=== PATIENT | female | born 1975 | race Caucasian/White ===

== ENCOUNTER 2017-06-26 09:43 | Emergency (ER) | payer BC, OTHER ==
[2017-06-26 09:53] VITALS: BP 149/104
[2017-06-26] MEDS ORDERED: Aspirin Low Dose CHEW TAB* 81 MG PO ONE (10:04)
[2017-06-26] MEDS ORDERED: Nitroglycerin TAB 0.4 MG* 0.4 MG TAB SL ONE (10:04)
--- NOTE | 2017-06-26 10:08 | UC ---
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 WALKED ABOUT 6 MINUTES TO HER OFFICE AFTER PARKING CAR AND SX WORSENED - FELT LIKE SHE MIGHT PASS OUT. PT HAS NAUSEA, EMERSON AND DIZZINESS WELL. NO SOB. NO PERSONAL OR FAMILY H/O CARDIAC DISEASE. NO PREVIOUS SIMILAR SX. - History of Current Complaint Chief Complaint: UCChestPain Stated Complaint: DIZZINESS, SOB,ARM PAIN Time Seen by Provider: 06/26/17 09:44 Hx Obtained From: Patient, Family/Van Loader - Hx Last Menstrual Period: 2 weeks ago Onset/Duration: Sudden Onset, Lasting Hours, Still Present Timing: Constant Initial Severity: Moderate Current Severity: Moderate Pain Intensity: 7 Chest Pain Location: Left Anterior Character: Tightness, Heaviness, Sharp/Stabbing Aggravating Factor(s): Exertion Alleviating Factor(s): Nothing Associated Signs & Symptoms: Positive: Chest Pain, Dizziness, Nausea/Vomiting. Negative: Recent Stress, SOB, Diaphoresis, Palpitations - Allergy/Home Medications Allergies/Adverse Reactions: Allergies Allergy/AdvReac Type Severity Reaction Status Date / Time Peanut Butter Flavor * Allergy Hives Verified 06/26/17 09:53 [Peanut Butter Flavor] Home Medications: Home Medications NK [No Home Medications Reported] 06/26/17 [History Confirmed 06/26/17] PMH/Surg Hx/FS Hx/Imm Hx Psychological History: Anxiety, Depression - Surgical History Surgical History: Yes Surgery Procedure, Year, and Place: 2005 - tubal,. 2016- Hysterectomy - Family History Known Family History: Negative: Cardiac Disease, Hypertension, Diabetes - Social History Alcohol Use: Weekly Alcohol Amount: Weekends Substance Use Type: None Substance Use Comment - Amount & Last Used: "I binge drink up to 12 beers at a time. About 2 times a week." Smoking Status (MU): Former Smoker Type: Cigarettes Length of Time of Smoking/Using Tobacco: socially - Immunization History Most Recent Influenza Vaccination: NOT UTD Most Recent Tetanus Shot: unknown Most Recent Pneumonia Vaccination: never Review of Systems Constitutional: Negative Respiratory: Negative Cardiovascular: Chest Pain Gastrointestinal: Nausea Genitourinary: Negative Neurological: Headache All Other Systems Reviewed And Are Negative: Yes Physical Exam Triage Information Reviewed: Yes Appearance: Well-Appearing, No Pain Distress, Well-Nourished Vital Signs: Initial Vital Signs Temp 99.0 F 01/02/18 09:47 Pulse 76 06/26/17 09:47 Resp 18 06/26/17 09:47 BP 149/104 06/26/17 09:47 Pulse Ox 100 06/26/17 09:47 Vital Signs Reviewed: Yes Eyes: Positive: Conjunctiva Clear ENT: Positive: Hearing grossly normal Neck: Positive: Supple Respiratory Exam: Normal Cardiovascular Exam: Normal Abdomen Description: Positive: Soft Musculoskeletal: Positive: No Edema Neurological: Positive: Alert Psychological: Positive: Normal Response To Family, Age Appropriate Behavior Skin: Negative: rashes Diagnostics - EKG Cardiac Rate: NL Cardiac Rhythm: Sinus: Normal - 63BPM Ectopy: None ST Segment: Normal - Assessment/Plan Course Of Treatment: ASA 81MG X4 GIVEN. 0.4 NTG SL GIVEN. PIV INSERTED WITH NS RUNNING. TO [facility] ED BY AMBULANCE. - Clinical Impression Provider Diagnoses: CHEST PAIN - Physician Notifications Discussed Patient Care With: Natasha Hernandez - TO [facility] ED BY AMBULANCE Time Discussed With Above Provider: 10:10 Instructed by Provider To: MD Will See In ED Discharge - Discharge Plan Condition: Stable Disposition: TRANS HIGHER LVL OF CARE FAC Referrals: Jose Cho MD [Primary Care Provider] -
[2017-06-26] MEDS ORDERED: NS 0.9% 1000 ML* 1,000 ML IV SCH (10:15)
== END 2017-06-26 10:22 | disposition short-term general hospital (02) ==
LOC: UCEAST 09:43
DX: R07.89 Other chest pain (principal); M25.511 Pain in right shoulder; M25.512 Pain in left shoulder; R11.10 Vomiting, unspecified; R51 Headache; R42 Dizziness and giddiness; R06.02 Shortness of breath; M79.603 Pain in arm, unspecified; Z91.010 Allergy to peanuts; Z87.891 Personal history of nicotine dependence
CPT/HCPCS: 93005; 96360; 99213; A9270-GY; G0463

== ENCOUNTER 2017-06-26 10:45 | Observation (INO) | payer BC, OTHER ==
[2017-06-26 11:29] LABS: ABS Basophils 0.1 10^3/ul (0-0.2); ABS Eosinophils 0.3 10^3/ul (0-0.6); ABS Lymphocytes 1.7 10^3/ul (1.0-4.8); ABS Monocytes 0.5 10^3/ul (0-0.8); ABS Nucleated RBC 0 10^3/ul; Eosinophil % 3.4 % (0-6); Hematocrit 37 % (35-47); Hemoglobin 12.6 g/dl (12.0-16.0); Lymphocyte % 20.1 % (25-47); Mean Corpuscular HGB Conc 34 g/dl (31-36); Mean Corpuscular Hemoglobin 33 pg (27-31); Mean Corpuscular Volume 97 fL (80-97); Mean Platelet Volume 8 um3 (7.4-10.4); Nucleated Red Blood Cells % 0; Platelet Count 329 10^3/ul (150-450); Red Blood Count 3.82 10^6/ul (4.0-5.4); Red Cell Distribution Width 13 % (10.5-15); White Blood Count 8.5 10^3/ul (3.5-10.8)
[2017-06-26 11:50] LABS: EGFR Non-African American 70.7 (>60)
--- NOTE | 2017-06-26 12:36 | RAD ---
INDICATION: Chest pain. COMPARISON: Comparison is made with a prior study from August 04, 2014. TECHNIQUE: A portable view of the chest was obtained. FINDINGS: Cardiac and mediastinal contours appear to be within normal limits. The lungs are underinflated and clear. No pleural effusion is seen. There is a moderate dorsal lumbar scoliosis convex toward the right in the dorsal region and toward the left in the lumbar region. IMPRESSION: NO EVIDENCE FOR ACUTE DISEASE.
[2017-06-26] MEDS ORDERED: Ondansetron ODT TAB* 4 MG PO ONE (13:24)
[2017-06-26] MEDS ORDERED: Acetaminophen TAB* 325 MG PO ONE (13:24)
[2017-06-26] MEDS ORDERED: Al Hydrox/Mg Hydrox/Simet LIQ* 30 ML UDC PO PRN (16:21)
[2017-06-26] MEDS ORDERED: Morphine INJ* 2 MG/ML 1 ML SYRINGE (TWO MG - NEW SYRINGE VERSION) IV PRN (16:21)
--- NOTE | 2017-06-26 19:48 | HP ---
CC: Dr. Cho * HISTORY AND PHYSICAL: ADDENDUM: DATE OF ADMISSION: 06/26/17 DIAGNOSTIC STUDIES/LAB DATA: White blood cell count of 8.5, hemoglobin 12.6, hematocrit of 37, and platelets of 329,000. D-dimer was below 200. Sodium was 136, potassium 3.9, chloride 104, carbon dioxide 27, BUN 11, creatinine 0.87. Initial troponin of 0.03, second troponin was 0.10. Due to the second troponin being just done 3 hours later and is significantly more elevated, we will repeat the test on the same blood sample. The patient's TSH was noted to be 0.94. Her liver function tests were unremarkable. The patient's EKG showed normal sinus rhythm with a heart rate of 65 beats per minute with no significant ST changes. The patient's portable chest x-ray was read by the radiologist as "no evidence for acute disease." ASSESSMENT AND PLAN: Shandra Barbour is a 42-year-old female with history of obesity, depression, and status post hysterectomy, who presents as someone with specific complaints of substernal chest pain associated with nausea and vomiting. The patient's second troponin is 0.1, but she has no EKG changes and the symptoms appear to be mostly GI related. The patient currently is chest pain free. Her second troponin is going to be reconfirmed. The patient is going to be placed on overnight observation and if her troponins do not rise anymore, she is going to undergo a cardiac stress test in the morning. Her exercise tolerance is wonderful as she does her CrossFit on almost a daily basis. For DVT prophylaxis, the patient is going to be placed on heparin subcutaneously. The patient's code status is full and her surrogate is her . TIME SPENT: Approximately 62 minutes was spent on admission of this patient, more than half of that time was spent [id number] with the patient doing the interview, physical exam. [id number]/[facility] #: [id number] [facility] HOSPITALDwayne
--- NOTE | 2017-06-26 20:06 | HP ---
CONTINUATION ADDENDUM NOW INCLUDED ON THIS REPORT CC: Dr. Cho * HISTORY AND PHYSICAL: DATE OF ADMISSION: 06/26/17 PRIMARY CARE PROVIDER: Dr. Cho. CHIEF COMPLAINT: Chest pain. HISTORY OF PRESENT ILLNESS: Shandra Barbour is a 42-year-old female with no history of current or ongoing illnesses who presented to the hospital complaining of chest pain. The patient stated that when she was driving to work and was approximately half way into her [address] to [place], she developed bilateral shoulder pain and elbow pain. Subsequently, she developed substernal chest pain with nausea and dizziness. She describes the dizziness as when she tries to get up too rapidly or move her head too swiftly, she she feels like she will be on a ship. She stated that she went to [facility] for it and she received Zofran. Right now, her nausea and the chest pain resolved, but then she stated also that it "comes back in waves." She received aspirin at [facility]. From [facility], she was transferred to ER for further evaluation. Her initial troponin was 0.03, but the second troponin was 0.1. The patient currently is chest pain free. The patient stated that she exercises [employer], which is an exercise group 5- 6 days a week for approximately an hour. At that point, she does heavy weightlifting and aerobic exercises. She has had no problems with exercise tolerance doing that. PAST MEDICAL HISTORY: 1. History of depression. 2. Status post hysterectomy. MEDICATIONS: None. ALLERGIES: No known drug allergies. FAMILY HISTORY: Positive for healthy parents and healthy siblings with no history of heart disease. SOCIAL HISTORY: The patient denies any current tobacco use. She has a history of smoking for 20 years approximately several cigarettes to half a pack a day and she quit over 3 years ago. She drinks alcohol occasionally. She denies any drug use. She is and her surrogate is her . 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 REVIEW OF SYSTEMS: Please see history of present illness. All the remaining 12 systems reviewed with the patient and they were otherwise negative. PHYSICAL EXAMINATION GENERAL APPEARANCE: The patient is a very pleasant 42-year-old female with a BMI of 32. The patient is in no acute distress. Alert, awake, and oriented x3. VITAL SIGNS: Blood pressure of 114/75, heart rate of 84 and regular, respiratory rate of 22, oxygen saturation 97% on room air, and temperature 99.1. HEENT: Head atraumatic and normocephalic. Eyes; pupils are equal, round, and reactive to light and accommodation. Oropharynx clear. Mucosa moist. NECK: Supple. No JVD, no bruits bilaterally. RESPIRATORY: Clear to auscultation bilaterally. CARDIOVASCULAR: Regular rate and rhythm. No murmur. ABDOMEN: Soft and nontender. Bowel sounds are present in all 4 quadrants. EXTREMITIES: There is no edema. Pulses are +2 bilaterally. No clubbing or cyanosis. NEURO EVALUATION: Cranial nerves II through XII are grossly intact. Motor strength is 5/5 bilaterally. SKIN: On evaluation of the skin, no ecchymotic areas or rashes noted. PSYCHIATRIC EVALUATION: On psychiatric evaluation, oriented x3 with no evidence of anxiety or depression. CONTINUATION ADDENDUM: DIAGNOSTIC STUDIES/LAB DATA: White blood cell count of 8.5, hemoglobin 12.6, hematocrit of 37, and platelets of 329,000. D-dimer was below 200. Sodium was 136, potassium 3.9, chloride 104, carbon dioxide 27, BUN 11, creatinine 0.87. Initial troponin of 0.03, second troponin was 0.10. Due to the second troponin being just done 3 hours later and is significantly more elevated, we will repeat the test on the same blood sample. The patient's TSH was noted to be 0.94. Her liver function tests were unremarkable. The patient's EKG showed normal sinus rhythm with a heart rate of 65 beats per minute with no significant ST changes. The patient's portable chest x-ray was read by the radiologist as "no evidence for acute disease." ASSESSMENT AND PLAN: Shandra Barbour is a 42-year-old female with history of obesity, depression, and status post hysterectomy, who presents as someone with specific complaints of substernal chest pain associated with nausea and vomiting. The patient's second troponin is 0.1, but she has no EKG changes and the symptoms appear to be mostly GI related. The patient currently is chest pain free. Her second troponin is going to be reconfirmed. The patient is going to be placed on overnight observation and if her troponins do not rise anymore, she is going to undergo a cardiac stress test in the morning. Her exercise tolerance is wonderful as she does her CrossFit on almost a daily basis. For DVT prophylaxis, the patient is going to be placed on heparin subcutaneously. The patient's code status is full and her surrogate is her . TIME SPENT: Approximately 62 minutes was spent on admission of this patient, more than half of that time was spent [id number] with the patient doing the interview, physical exam. [id number]/[facility] #: [id number]/[facility] #: [id number] SHARRI
[2017-06-26] MEDS: Acetaminophen TAB* 325 MG PO PRN (21:02)
[2017-06-26] MEDS: Heparin VIAL(*) 5000 UNITS/ML VIAL (FIVE THOUSAND) SUBCUT SCH (21:02)
--- NOTE | 2017-06-26 22:34 | ED ---
Jalen Garcia Stephanie, scribed for Lucero Samuels MD on 06/26/17 at 1158 . HPI Chest Pain - HPI Summary HPI Summary: Pt is a 42 y/o F transferred from [facility] with c/o CP that began this morning while driving to work at [employer]. Both elbows began to hurt and the pain radiated into both shoulders and into the chest. The pain is described as a tight cramp and is intermittent. Symptoms include nausea, dizziness, near syncope, EMERSON and shakiness. The pt denies vomiting. Pt reports walking into work and felt faint. She was given 4 baby aspirin and NTG at previous to presenting to the ED. NTG relieved her pain "somewhat" but not completely. Her pain is currently rated as a 6 in severity and decreases to a 4 intermittently. Blood pressure is 116/78 and pulse is 67 BPM. O2 stats 100%. Pt denies FHx of heart disease. Denies pain upon deep breaths. Pt is former smoker, quit 3 yrs ago. - History of Current Complaint Chief Complaint: EDChestPainROMI Time Seen by Provider: 06/26/17 11:48 Hx Obtained From: Patient, Other: - Dr. Cook at [facility] Hx Last Menstrual Period: 2 weeks ago Onset/Duration: Started Hours Ago, Atraumatic, Still Present Timing: Intermittent Initial Severity: Severe Current Severity: Moderate Pain Intensity: 3 Pain Scale Used: 0-10 Numeric Chest Pain Location: Mid Sternal Chest Pain Radiates: Yes Chest Pain Radiates To:: Shoulder - elbowsbilaterally and into chest Character: Pressure/Squeezing, Other: - Cramping Aggravating Factor(s): Nothing Alleviating Factor(s): Nothing Associated Signs and Symptoms: Positive: Headaches, Dizziness, Nausea, Other: - Near syncope, shakiness. Negative: Vomiting Related History: Obesity - Risk Factors AMI/ACS Risk Factors: Obesity, Smoking - former - Additional Pertinent History Primary Care Physician: AGATHA - Allergy/Home Medications Allergies/Adverse Reactions: Allergies Allergy/AdvReac Type Severity Reaction Status Date / Time Peanut Butter Flavor * Allergy Hives Verified 06/26/17 09:53 [Peanut Butter Flavor] PMH/Surg Hx/FS Hx/Imm Hx Previously Healthy: Yes Endocrine/Hematology History: Denies: Hx Diabetes, Hx Thyroid Disease Cardiovascular History: Denies: Hx Hypertension Respiratory History: Denies: Hx Asthma, Hx Chronic Obstructive Pulmonary Disease (COPD) GI History: Denies: Hx Ulcer, Other GI Disorders Psychiatric History: Reports: Hx Anxiety, Hx Depression, Hx Community Mental Health Tx Denies: Hx Panic Disorder, Hx Post Traumatic Stress Disorder, Hx Inpatient Treatment, Hx Schizophrenia, Hx Suicide Attempt, Hx of Violent Episodes Against Others, Hx Substance Abuse - Surgical History Surgery Procedure, Year, and Place: 2005 - tubal,. 2016- Hysterectomy - Immunization History Date of Tetanus Vaccine: unsure Infectious Disease History: No Infectious Disease History: Denies: Hx Clostridium Difficile, Hx Hepatitis, Hx Human Immunodeficiency Virus (HIV), Hx of Known/Suspected MRSA, Hx Shingles, Hx Tuberculosis, Hx Known/ Suspected VRE, Hx Known/Suspected VRSA, History Other Infectious Disease, Traveled Outside the [place] in Last 30 Days - Family History Known Family History: Negative: Cardiac Disease, Hypertension, Diabetes - Social History Occupation: Employed Full-time - [employer] Lives: With Family Alcohol Use: Weekly Alcohol Amount: Weekends Substance Use Type: Reports: None Substance Use Comment - Amount & Last Used: "I binge drink up to 12 beers at a time. About 2 times a week." Hx Tobacco Use: Yes Smoking Status (MU): Former Smoker Type: Cigarettes Length of Time of Smoking/Using Tobacco: socially Review of Systems Constitutional: Other - dizziness, near-syncope. Negative: Fever Positive: Chest Pain - tightness Respiratory: Negative Positive: Nausea Skin: Negative Neurological: Other - shakiness Positive: Headache Psychological: Normal All Other Systems Reviewed And Are Negative: Yes Physical Exam - Summary Physical Exam Summary: Appearance: Ill-appearing, moderate pain distress, Well-nourished Skin: Warm, color reflects adequate perfusion Head: Normal Head/Face inspection Eyes: Conjunctiva clear ENT: Normal inspection Neck: Supple, no nodes, no JVD. Respiratory: Lungs clear, Normal breath sounds, no respiratory distress Cardio: RRR, No murmur, pulses normal, brisk capillary refill Abdomen: soft, nontender Bowel sounds: present Musculoskeletal: Strength Intact/ ROM intact. No calf tenderness. No edema. Neuro: Alert, muscle tone normal, facial symmetry, speech normal, sensory/motor intact Psychological: Normal Triage Information Reviewed: Yes Vital Signs On Initial Exam: Initial Vitals Temp Pulse Resp BP Pulse Ox 99.1 F 70 15 120/75 99 06/26/17 10:53 06/26/17 10:53 06/26/17 10:53 06/26/17 10:53 06/26/17 10:53 Vital Signs Reviewed: Yes - Rebecca Coma Scale Coma Scale Total: 15 Diagnostics - Vital Signs Vital Signs Temp Pulse Resp BP Pulse Ox 06/26/17 11:20 99 06/26/17 10:59 65 15 99 06/26/17 10:57 68 14 99 06/26/17 10:54 120/75 06/26/17 10:53 99.1 F 70 15 120/75 99 - Laboratory Lab Results: Lab Results 06/26/17 06/26/17 Range/Units 11:20 11:20 WBC 8.5 (3.5-10.8) 10^3/ul RBC 3.82 L (4.0-5.4) 10^6/ul Hgb 12.6 (12.0-16.0) g/dl Hct 37 (35-47) % MCV 97 (80-97) fL MCH 33 H (27-31) pg MCHC 34 (31-36) g/dl RDW 13 (10.5-15) % Plt Count 329 (150-450) 10^3/ul MPV 8 (7.4-10.4) um3 Neut % (Auto) 69.8 (38-83) % Lymph % (Auto) 20.1 L (25-47) % [place] % (Auto) 5.6 (1-9) % Eos % (Auto) 3.4 (0-6) % Baso % (Auto) 1.1 (0-2) % Absolute Neuts (auto) 6.0 (1.5-7.7) 10^3/ul Absolute Lymphs (auto) 1.7 (1.0-4.8) 10^3/ul Absolute Monos (auto) 0.5 (0-0.8) 10^3/ul Absolute Eos (auto) 0.3 (0-0.6) 10^3/ul Absolute Basos (auto) 0.1 (0-0.2) 10^3/ul Absolute Nucleated RBC 0 10^3/ul Nucleated RBC % 0 Sodium 136 (133-145) mmol/L Potassium 3.9 (3.5-5.0) mmol/L Chloride 104 (101-111) mmol/L Carbon Dioxide 27 (22-32) mmol/L Anion Gap 5 (2-11) mmol/L BUN 11 (6-24) mg/dL Creatinine 0.87 (0.51-0.95) mg/dL Est GFR ( Amer) 91.0 (>60) Est GFR (Non-Af Amer) 70.7 (>60) BUN/Creatinine Ratio 12.6 (8-20) Glucose 95 (70-100) mg/dL Calcium 9.2 (8.6-10.3) mg/dL Total Bilirubin 0.60 (0.2-1.0) mg/dL AST 22 (13-39) U/L ALT 35 (7-52) U/L Alkaline Phosphatase 80 (34-104) U/L CK-MB (CK-2) 1.9 (0.6-6.3) ng/mL Myoglobin 22.3 (14.3-65.8) ng/mL Troponin I 0.03 (<0.04) ng/mL Total Protein 7.2 (6.4-8.9) g/dL Albumin 4.0 (3.2-5.2) g/dL Globulin 3.2 (2-4) g/dL Albumin/Globulin Ratio 1.3 (1-3) TSH Pending Result Diagrams: 06/26/17 11:20 06/26/17 11:20 Lab Statement: Any lab studies that have been ordered have been reviewed, and results considered in the medical decision making process. - Radiology CXR Xray Interpretation: No Acute Changes Radiology Interpretation Completed By: Radiologist - NO EVIDENCE FOR ACUTE DISEASE. - EKG 11:18 EKG Rhythm: Sinus Rhythm EKG Interpretation: 85 BPM. nml AV, IV CT, nml QTc, nml axis. No change compared with previous 15:02 EKG Rhythm: Sinus Rhythm - 65 BMP EKG Interpretation: Nml AV, IV, CT, QTc. Nml axis, no acute changes. Re-Evaluation - Re-Evaluation First Eval Re-Evaluation Time: 15:10 - Discusses troponin result. ED physician discussed hospital admission with patient. Pt is currently feeling slight dizziness but her pain has resolved. Change: Improved Second Eval Re-Evaluation Time: 15:32 - Pt will be admitted. Remains without chest pain. Change: Unchanged Chest Pain Course/Dx - Course Course Of Treatment: At 14:50 ED physician is aware that the patient's troponin is abnormal at 0.1. ED physician discusses troponin result with patient and reason for admission into hospital. - Chest Pain Differential Diagnosis/HQI/PQRI: Acute [place], ACS, Chest Wall, GI Disease, Pulmonary Embolism - Diagnoses Provider Diagnoses: Chest pain, Elevated troponin - Provider Notifications Discussed Care Of Patient With: Dipika Guadalupe - Agrees to admit pt. Time Discussed With Above Provider: 15:00 Instructed by Provider To: Admit As Observation - Critical Care Time Critical Care Time: 30-74 min - 30 min Discharge - Discharge Plan Condition: Stable Disposition: ADMITTED TO [facility] The documentation as recorded by the Jalen de anda Stephanie accurately reflects the service I personally performed and the decisions made by Arvind langley Barbara J, MD.
[2017-06-27] MEDS: Heparin VIAL(*) 5000 UNITS/ML VIAL (FIVE THOUSAND) SUBCUT SCH ×2 (05:53→13:04)
[2017-06-27 08:30] VITALS: BP 111/72
[2017-06-27] MEDS ORDERED: Aspirin Low Dose CHEW TAB* 81 MG PO SCH (09:00)
--- NOTE | 2017-06-27 12:56 | RAD ---
Edited for charges. Indication: Chest pain. Myocardial perfusion scan was performed utilizing 1 day protocol. Rest myocardial perfusion was performed after intravenous injection of 10.3 mCi of technetium 99m tetrofosmin. Treadmill stress study was performed and the maximum heart rate achieved was 98% of the maximum predicted value. 25.8 mCi of technetium 99 and tetrofosmin was then injected for the stress portion of the study. There is homogeneous distribution of the radiotracer throughout the left ventricle. There is no significant fixed or reversible perfusion defect identified. The ejection fraction at stress is 78%. Evaluation of wall motion demonstrates no focal wall motion abnormality. IMPRESSION: No evidence of fixed or reversible perfusion defect is identified. Normal ejection fraction and normal wall motion. ASSESSMENT: Low risk Based on imaging criteria from ACC/AHA 2002 Guideline Update for the Management of Patients With Chronic Stable Angina Table 23. Noninvasive Risk Stratification. MTDD
[2017-06-27] MEDS: Acetaminophen TAB* 325 MG PO PRN (13:03)
--- NOTE | 2017-06-28 01:30 | DS ---
CC: Dr. Cho * DISCHARGE SUMMARY: DATE OF ADMISSION: 06/26/17 DATE OF DISCHARGE: 06/27/17 PRIMARY CARE PROVIDER: Dr. Cho. DISCHARGE DIAGNOSES: 1. Chest pain with low probability cardiac stress is documented on 06/27/17. 2. Indeterminate troponin of unknown significance. MEDICATIONS AT DISCHARGE: None. LABORATORY DATA AND STUDIES: Performed during the hospital stay included: Stress test documented on 06/27/17 showed low risk. The ejection fraction was noted at 78% at stress and wall motion demonstrated no focal wall motion abnormality and no evidence of fixed or reversible defect was identified. The patient's initial troponin was 0.03. The repeat troponin was 0.10, but a repeat run on the same sample yielded a value of 0.03. Nevertheless, 3 subsequent troponin draws was noted to be in the range of 0.34 to 0.36. At that time, the patient was asymptomatic from cardiac standpoint already. The patient's D-dimer was below 200 at admission. HOSPITALIZATION COURSE: Shandra Barbour is a 42-year-old female with past medical history significant for depression and status post hysterectomy who presented with chest pain. The chest pain was non-exercise related, occurred when the patient was driving a car. It was associated with nausea. For further details of the patient's presentation, please see history and physical dictated by myself on 06/26/17. Shortly, the patient was observed on telemetry monitored bed without evidence of cardiac arrhythmia. She was asymptomatic throughout her hospital stay and her stress test in the morning was low risk. Nevertheless, the patient's troponins were abnormal. Her initial troponin was 0.03, repeat troponin was 0.1. Due to large discrepancy between the first troponin and the second, I asked the labor relations teacher to repeat the troponin on the same sample and the repeated troponin turned out to be 0.03. Nevertheless, 3 subsequent troponins ranged in between 0.34 to 0.36. I do not have an explanation for the patient's indeterminate troponin. It is possible that she had some close reactivity with . Nevertheless, I asked the dental laboratory supervisor to re-run 2 out of 3 positive troponins on the same sample and that is being done as we speak. At this point, the patient is going to be discharged home with recommendation to follow up with her primary care provider. The remaining laboratory values that were obtained during the hospital stay included TSH of 0.94. The patient's ESR was 41. Her C-reactive protein was 3.45. PHYSICAL EXAMINATION: At discharge, unchanged from admission. [id number]/[facility] #: [id number] SHARRI
== END 2017-06-27 15:00 | disposition home or self-care (01) ==
LOC: ED 10:45 → MEDTELE 17:07
PROVIDERS: ADMIT Internal Medicine; ATTEND Internal Medicine
DX: R07.9 Chest pain, unspecified (principal); R11.2 Nausea with vomiting, unspecified; R74.8 Abnormal levels of other serum enzymes; F32.9 Major depressive disorder, single episode, unspecified; E66.9 Obesity, unspecified; Z87.891 Personal history of nicotine dependence
CPT/HCPCS: 36415; 71045; 78452; 80053; 82550; 82553; 83605; 83874; 84443; 84484; 85025; 85379; 85652; 86140; 93005; 93017; 96372; 99291; A9270-GY; A9502; G0378; J1644

== ENCOUNTER 2017-08-18 09:26 | Emergency (ER) | payer BC, OTHER ==
[2017-08-18 10:17] VITALS: BP 107/73
--- NOTE | 2017-08-18 11:34 | UC ---
Camilo Garcia Angela, scribed for Rachel Diop DO on 08/18/17 at 1036 . General HPI - HPI Summary HPI Summary: This pt is a 42 y/o female presenting to [facility] c/o cough for the past 4 days. Pt reports she began to have a tickle in her throat 4 days ago. She then developed a cough that goes deep into her chest. Pt states her cough is painful and she coughs so much she chokes and gags. She additionally reports sinus congestion, pressure, headache. Pt has hx of pneumonia and states this feels like one. Denies sore throat, ear ache, muscle aches, nausea, vomiting, abd pain, chest pain, SOB. She reports a recurring rash on her chest, which she states is not unusual and has been checked by her PCP for this. Denies any other PMHx. Pt is a former smoker, quit 3 years ago. NKDA. - History of Current Complaint Chief Complaint: UCRespiratory Stated Complaint: COUGH,CONGESTED Time Seen by Provider: 08/18/17 10:25 Hx Obtained From: Patient Hx Last Menstrual Period: 2 weeks ago Onset/Duration: Gradual Onset, Lasting Days, Still Present Timing: Constant Current Severity: Moderate Pain Intensity: 7 Pain Location at: head Aggravating: nothing Alleviating: nothing Associated Signs & Symptoms: Positive: Cough, Headache, Other - POS: sinus congestion, pressure, rash. NEG: sore throat, ear ache, myalgia. Negative: Abdominal Pain, Chest Pain, Nausea, SOB, Vomiting - Allergy/Home Medications Allergies/Adverse Reactions: Allergies Allergy/AdvReac Type Severity Reaction Status Date / Time No Known Allergies Allergy Verified 08/18/17 10:17 PMH/Surg Hx/FS Hx/Imm Hx Other Endocrine History: DENIES: diabetes Other Cardiovascular History: DENIES: HTN Respiratory History: Pneumonia - Surgical History Surgical History: Yes Surgery Procedure, Year, and Place: 2005 - tubal,. 2016- Hysterectomy - Family History Known Family History: Negative: Cardiac Disease, Hypertension, Diabetes - Social History Alcohol Use: Occasionally Alcohol Amount: "I binge drink up to 12 beers at a time. About 2 times a week. " Substance Use Type: None Smoking Status (MU): Former Smoker Type: Cigarettes Length of Time of Smoking/Using Tobacco: socially Have You Smoked in the Last Year: No - quit 3 years ago - Immunization History Most Recent Influenza Vaccination: NOT UTD Most Recent Tetanus Shot: unknown Most Recent Pneumonia Vaccination: never Review of Systems Constitutional: Negative Skin: Rash Eyes: Negative ENT: Sinus Congestion, Sinus Pain/Tenderness - pressure, Other - NEG: sore throat, ear ache Respiratory: Cough, Other - NEG: SOB Cardiovascular: Negative Gastrointestinal: Negative Genitourinary: Negative Motor: Negative Neurovascular: Negative Musculoskeletal: Negative Neurological: Headache Psychological: Negative Is Patient Immunocompromised?: No All Other Systems Reviewed And Are Negative: Yes Physical Exam Triage Information Reviewed: Yes Appearance: Well-Appearing, No Pain Distress, Well-Nourished Vital Signs: Initial Vital Signs Temp 98.5 F 08/18/17 10:14 Pulse 77 08/18/17 10:14 Resp 18 08/18/17 10:14 BP 107/73 08/18/17 10:14 Pulse Ox 99 08/18/17 10:14 Vital Signs Reviewed: Yes Eyes: Positive: Conjunctiva Clear. Negative: Discharge ENT: Positive: Hearing grossly normal, Pharyngeal erythema, TMs normal, Sinus tenderness. Negative: Tonsillar swelling, Tonsillar exudate, Muffled voice, Hoarse voice Neck exam: Normal Neck: Positive: Supple Respiratory: Positive: Normal breath sounds, No respiratory distress, No accessory muscle use, Expiration - prolonged expiration at the bilateral bases. Negative: Wheezing Cardiovascular: Positive: RRR, No Murmur Musculoskeletal Exam: Normal Neurological: Positive: Alert, Muscle Tone Normal Psychological Exam: Normal Psychological: Positive: Age Appropriate Behavior Skin Exam: Other - Macular erythematous rash over forehead and chest, that pt says is chronic and recurring Rash is nontender, no calor. Macular erythematous rash over forehead and chest, that pt says is chronic and recurring Rash is nontender, no calor. Course/Dx - Course Course Of Treatment: Pt will be given a prescription for albuterol, tessalon perles, mucinex, robitussin with codeine. She is advised to follow up with her PCP. Medications reviewed. Allergies reviewed. - Differential Dx - Multi-Symptom Provider Diagnoses: sinusitis, bronchospasm Discharge - Discharge Plan Condition: Stable Disposition: HOME Prescriptions: Albuterol HFA INHALER* [Ventolin HFA Inhaler*] 2 puff INH Q4H PRN #1 mdi PRN Reason: Sob/Wheezing Benzonatate CAP* [Tessalon 100 MG CAP*] 100 mg PO TID #30 cap guaiFENesin ER TAB [Mucinex*] 600 mg PO BID PRN #1 box PRN Reason: Cough guaiFENesin/CODIEN 100MG-10MG* [Robitussin AC 100Mg-10Mg*] 5 ml PO Q4H PRN #400 ml MDD 10ml PRN Reason: Cough Patient Education Materials: Sinusitis (ED), Bronchospasm (ED) Referrals: Jose Cho MD [Primary Care Provider] - 5 Days () Additional Instructions: INHALED BRONCHODILATORS: You have received a prescription for an inhaled bronchodilator -- a medication which stimulates the airways in the lung to dilate. This improves the flow of air in asthma, bronchitis, and emphysema. These medicines have some similarity to adrenaline, and can cause similar side effects: shakiness, racing heart, and a sense of nervousness. These side effects decrease with time. Contact your doctor if these side effects are severe. Do not over-use the medicine. Too-frequent use of the inhaler may make it ineffective. Call your doctor if the inhaler is not controlling your symptoms at the prescribed doses. COUGH-SUPPRESSANT & EXPECTORANT MEDICATION: You are to use a cough medication as needed for relief of symptoms. This medicine is a combination of an expectorant (to make the mucous thinner and more easily "coughed up") and a cough suppressant (to reduce the frequency of coughing). The cough-suppressant medicine is related to narcotics. You may experience mild nausea and sleepiness. Some patients who are very sensitive to narcotics may have stomach pain from this medicine. Taking the medicine with food reduces these side effects. Do not drive or work with machinery until you know how this medicine affects you. The expectorant should have no side effects. Iodine-containing expectorants (such as organidin) should not be taken by persons with active thyroid disease unless approved by your doctor. Call the doctor if you develop shortness of breath, hives, rash, itching, lightheadedness, or severe nausea and vomiting. EXPECTORANT MEDICATION: An expectorant medicine has been prescribed. This type of drug makes mucous thinner, helping the sinuses, nose, and bronchial tubes to remain free of pus and mucous. Expectorants make a cough less severe and more comfortable, and help infected sinuses drain. In general, antihistamines defeat the purpose of the expectorant by making mucous thicker. They should be avoided unless specifically recommended by your physician. TESSALON PERLES: You have received a prescription for Tessalon Perles (benzonatate). This is a non-narcotic medicine for relief of cough. It usually works in about 15- 20 minutes and lasts around four hours. Tessalon Perles should be swallowed. They should not be chewed or dissolved in the mouth (this can produce temporary numbing of the mouth and choking can occur). If you develop any adverse effects such as wheezing, shortness of breath, hives, rash, itching, or lightheadedness, please return at once. The documentation as recorded by the Camilo de anda Angela accurately reflects the service I personally performed and the decisions made by me, Rachel Diop DO.
== END 2017-08-18 11:15 | disposition home or self-care (01) ==
LOC: UCEAST 09:26
DX: J32.9 Chronic sinusitis, unspecified (principal); J98.01 Acute bronchospasm; Z87.891 Personal history of nicotine dependence
CPT/HCPCS: 99212; G0463

== ENCOUNTER 2018-10-07 15:24 | Emergency (ER) | payer BC, OTHER ==
[2018-10-07] MEDS ORDERED: diPHENhydraMINE PO* 25 MG PO ONE (15:32)
[2018-10-07] MEDS ORDERED: predniSONE TAB* 20 MG PO ONE (15:32)
[2018-10-07 15:35] VITALS: BP 125/82
--- NOTE | 2018-10-07 15:45 | UC ---
Skin Complaint HPI - HPI Summary HPI Summary: 43-year-old female presents stating she woke up this morning with a pruritic rash to her anterior chest and neck. Denies fever, chills, swelling of the lips , tongue, or throat, difficulty breathing, changes in medications, diet, soaps, detergents, cosmetics, lotions, or known contact with any environmental irritants. - History of Current Complaint Time Seen by Provider: 10/07/18 15:25 Stated Complaint: RASH Hx Obtained From: Patient Hx Last Menstrual Period: 2 weeks ago - Allergy/Home Medications Allergies/Adverse Reactions: Allergies Allergy/AdvReac Type Severity Reaction Status Date / Time No Known Allergies Allergy Verified 10/07/18 15:35 Home Medications: Home Medications Estradiol 1 mg PO DAILY 10/07/18 [History Confirmed 10/07/18] diphenhydrAMINE HCl [Benadryl Allergy 25 MG CAP] 25 mg PO Q6HR PRN 10/07/18 [ History Confirmed 10/07/18] PMH/Surg Hx/FS Hx/Imm Hx Previously Healthy: Yes Respiratory History: Asthma Other History Of: Negative For: Anticoagulant Therapy - Surgical History Surgical History: Yes Surgery Procedure, Year, and Place: 2004 - tubal,. 2016- Hysterectomy - Family History Known Family History: Negative: Cardiac Disease, Hypertension, Diabetes - Social History Occupation: Employed Full-time Lives: With Family Alcohol Use: Occasionally Alcohol Amount: "I binge drink up to 12 beers at a time. About 2 times a week. " Substance Use Type: None Substance Use Comment - Amount & Last Used: "I binge drink up to 12 beers at a time. About 2 times a week." Smoking Status (MU): Former Smoker Type: Cigarettes Length of Time of Smoking/Using Tobacco: socially Have You Smoked in the Last Year: No - quit 3 years ago - Immunization History Most Recent Influenza Vaccination: NOT UTD Most Recent Tetanus Shot: unknown Most Recent Pneumonia Vaccination: never Review of Systems All Other Systems Reviewed And Are Negative: Yes Constitutional: Negative: Fever, Chills Skin: Positive: Rash Respiratory: Negative: Shortness Of Breath, Cough Cardiovascular: Negative: Palpitations, Chest Pain Gastrointestinal: Positive: Negative Genitourinary: Positive: Negative Musculoskeletal: Positive: Negative Neurological: Positive: Negative Is Patient Immunocompromised?: No Physical Exam - Summary Physical Exam Summary: GENERAL APPEARANCE: Well developed, well nourished, alert and cooperative, and appears to be in no acute distress. EYES: Conjunctiva clear. No drainage. EARS: External auditory canals and tympanic membranes clear, hearing grossly intact. NOSE: No nasal discharge. THROAT: Pharynx normal. No tonsilar inflammation, swelling, exudate, or lesions. Uvula midline. Oral cavity normal. Teeth and gingiva in good general condition. Airway intact. NECK: Neck supple, non-tender without lymphadenopathy. CARDIAC: Normal S1 and S2. No S3, S4 or murmurs. Rhythm is regular. There is no peripheral edema, cyanosis or pallor. Extremities are warm and well perfused. Capillary refill is less than 2 seconds. Peripheral pulses intact. LUNGS: Clear to auscultation without rales, rhonchi, wheezing or diminished breath sounds. ABDOMEN: Positive bowel sounds. Soft, nondistended, nontender. No guarding or rebound. No masses or hepatosplenomegally. MUSKULOSKELETAL: ROM intact to all extremities. No joint erythema or tenderness. Normal muscular development. Normal gait. SKIN: Erythematous, urticarial rash to anterior neck and chest. No other lesions noted. Triage Information Reviewed: Yes Vital Signs Reviewed: Yes Course/Dx - Course Course Of Treatment: 43-year-old female presents stating she woke up this morning with a pruritic rash to her anterior chest and neck. She took one dose of diphenhydramine 25 mg about 2 hours prior to arrival with no relief. Denies fever, chills, swelling of the lips, tongue, or throat, difficulty breathing, changes in medications, diet, soaps, detergents, cosmetics, lotions, or known contact with any environmental irritants. Afebrile. Vital signs stable. Exam is remarkable for erythematous urticarial rash to her anterior upper chest and neck. No swelling of lips tongue or throat. Airway was patent. Bilateral breath sounds are clear. She was given a second dose of diphenhydramine 25 mg PO as well as a dose of prednisone 40 mg PO in the clinic. Recommend he start using an [id number] nondrowsy antihistamine up to 3 times a day and I will continue her on prednisone 50 mg daily for the next 2 days. She follow-up with her primary care provider in 3 days if symptoms do not improve. Anticipatory guidance and warning symptoms requiring immediate evaluation in the emergency room reviewed with the patient. Verbalizes understanding and agrees with plan of care. - Differential Diagnoses - Skin Complaint Differential Diagnoses: Contact Dermatitis, Drug Rash, Local Allergic Reaction, Urticaria - Diagnoses Provider Diagnosis: Urticaria Discharge - Sign-Out/Discharge Documenting (check all that apply): Patient Departure All imaging exams completed and their final reports reviewed: No Studies - Discharge Plan Condition: Stable Disposition: HOME Prescriptions: predniSONE TAB* [Deltasone TAB*] 50 mg PO DAILY #2 tab Patient Education Materials: Urticaria (ED) Referrals: Jose Cho MD [Primary Care Provider] - 3 Days Additional Instructions: Your rash appears to be a condition called urticaria of an unknown cause. Take an over the counter non-drowsy antihistamine such as Zrytec, Claritin, or Page up to 3 times a day for the itching. You may use the generic forms of these medications. Take prednisone 50 mg daily for two more days starting tomorrow. We gave you a dose in the clinic today. Follow up with your primary care provider in 3 days if no improvement. Seek immediate medical attention in the emergency room if you have swelling of the lips, tongue, or throat, difficulty breathing, or any worsening of symptoms. - Billing Disposition and Condition Condition: STABLE Disposition: Home - Attestation Statements Provider Attestation: I was available for consult. This patient was seen by the CARL. The patient was not presented to, seen by, or examined by me. -Roman
== END 2018-10-07 15:50 | disposition home or self-care (01) ==
LOC: UCEAST 15:24
DX: L50.9 Urticaria, unspecified (principal); J45.909 Unspecified asthma, uncomplicated; Z87.891 Personal history of nicotine dependence
CPT/HCPCS: 99212; A9270-GY; G0463; J7512

== ENCOUNTER 2019-04-08 07:48 | Emergency (ER) | payer BC ==
--- NOTE | 2019-04-08 08:28 | ED ---
Abdominal Pain/Female - HPI Summary HPI Summary: Patient is a 44 y/o F presenting to the ED with a chief complaint of abdominal pain in the left lower quadrant. She states she had a colonoscopy this past Sunday, on 04/04/19, where a medium-sized polyp and lesion were removed. Since then, she has had steadily increasing pain in the LLQ, and Dr. Munson advised her to come here if the pain kept increasing. She reports associated decreased appetite. She denies nausea. Notable hx of diverticulitis, IBS, and hysterectomy. - History of Current Complaint Chief Complaint: EDAbdPain Stated Complaint: COLONOSCOPY ISSUES PER PT Time Seen by Provider: 04/08/19 08:09 Hx Obtained From: Patient Hx Last Menstrual Period: 2 weeks ago Onset/Duration: Gradual Onset, Lasting Days, Still Present Timing: Days Severity Initially: Moderate Severity Currently: Severe Pain Intensity: 8 Pain Scale Used: 0-10 Numeric Location: Discrete At: LLQ Radiates: No Aggravating Factor(s): Nothing Alleviating Factor(s): Nothing Associated Signs and Symptoms: Positive: Decreased Appetite. Negative: Nausea Allergies/Adverse Reactions: Allergies Allergy/AdvReac Type Severity Reaction Status Date / Time No Known Allergies Allergy Verified 04/08/19 08:08 Home Medications: Home Medications NK [No Home Medications Reported] 04/08/19 [History Confirmed 04/08/19] PMH/Surg Hx/FS Hx/Imm Hx Previously Healthy: Yes Endocrine/Hematology History: Denies: Hx Anticoagulant Therapy, Hx Blood Disorders, Hx Diabetes, Hx Thyroid Disease, Hx Unexplained Bleeding Cardiovascular History: Reports: Hx Angina - just most recent episodes Denies: Hx Congenital Heart Disease, Hx Deep Vein Thrombosis, Hx Hypertension , Hx Rheumatic Fever Respiratory History: Denies: Hx Asthma, Hx Chronic Obstructive Pulmonary Disease (COPD), Hx Pneumonia, Hx Pulmonary Embolism GI History: Reports: Hx Irritable Bowel, Other GI Disorders - diverticulitis Denies: Hx Gastroesophageal Reflux Disease, Hx Ulcer Sensory History: Denies: Hx Contacts or Glasses, Hx Hearing Aid Opthamlomology History: Denies: Hx Contacts or Glasses Psychiatric History: Reports: Hx Anxiety, Hx Depression, Hx Community Mental Health Tx Denies: Hx Panic Disorder, Hx Post Traumatic Stress Disorder, Hx Inpatient Treatment, Hx Schizophrenia, Hx Suicide Attempt, Hx of Violent Episodes Against Others, Hx Substance Abuse - Surgical History Surgery Procedure, Year, and Place: 2005 - tubal,. 2016- Hysterectomy - Immunization History Date of Tetanus Vaccine: unsure Infectious Disease History: No Infectious Disease History: Denies: Hx Clostridium Difficile, Hx Hepatitis, Hx Human Immunodeficiency Virus (HIV), Hx of Known/Suspected MRSA, Hx Shingles, Hx Tuberculosis, Hx Known/ Suspected VRE, Hx Known/Suspected VRSA, History Other Infectious Disease, Traveled Outside the [place] in Last 30 Days - Family History Known Family History: Negative: Cardiac Disease, Hypertension, Diabetes - Social History Alcohol Use: Occasionally Hx Substance Use: No Substance Use Type: Reports: None Hx Tobacco Use: Yes - quit 5 yrs ago Smoking Status (MU): Former Smoker Type: Cigarettes Length of Time of Smoking/Using Tobacco: socially Have You Smoked in the Last Year: No - quit 3 years ago Review of Systems Positive: Other - decreased appetite Positive: Abdominal Pain. Negative: Nausea All Other Systems Reviewed And Are Negative: Yes Physical Exam - Summary Physical Exam Summary: VITAL SIGNS: Reviewed. GENERAL: Patient is a well-developed and nourished female who is lying comfortable in the stretcher. Patient is not in any acute respiratory distress. HEAD AND FACE: No signs of trauma. No ecchymosis, hematomas or skull depressions. No sinus tenderness. EYES: PERRLA, EOMI x 2, No injected conjunctiva, no nystagmus. EARS: Hearing grossly intact. Ear canals and tympanic membranes are within normal limits. MOUTH: Oropharynx within normal limits. NECK: Supple, trachea is midline, no adenopathy, no JVD, no carotid bruit, no c- spine tenderness, neck with full ROM. CHEST: Symmetric, no tenderness at palpation. LUNGS: Clear to auscultation bilaterally. No wheezing or crackles. CVS: Regular rate and rhythm, S1 and S2 present, no murmurs or gallops appreciated. ABDOMEN: Soft, LLQ tenderness. No signs of distention. No rebound, no guarding, and no masses palpated. Bowel sounds are normal. EXTREMITIES: FROM in all major joints, no edema, no cyanosis or clubbing. NEURO: Alert and oriented x 3. No acute neurological deficits. Speech is normal and follows commands. SKIN: Dry and warm. Triage Information Reviewed: Yes Vital Signs On Initial Exam: Initial Vitals Temp Pulse Resp BP Pulse Ox 97.2 F 63 17 120/83 97 10/15/19 08:00 04/08/19 08:00 04/08/19 08:00 04/08/19 08:00 04/08/19 08:00 Vital Signs Reviewed: Yes Procedures - Sedation Patient Received Moderate/Deep Sedation with Procedure: No Diagnostics - Vital Signs Vital Signs Temp Pulse Resp BP Pulse Ox 04/08/19 08:10 63 127/72 96 04/08/19 08:09 67 97 04/08/19 08:00 97.2 F 63 17 120/83 97 - Laboratory Result Diagrams: 04/08/19 08:19 04/08/19 08:19 Lab Statement: Any lab studies that have been ordered have been reviewed, and results considered in the medical decision making process. - CT CT a/p CT Interpretation Completed By: Radiologist Summary of CT Findings: 1. Severe colonic diverticulosis most marked at the sigmoid segment without findings of acute diverticulitis. Progression of disease compared with the 2014 exam. 2. Negative for free air or ascites. 3. Hepatosteatosis. ED physician has reviewed this report. Abdominal Pain Fem Course/Dx - Course Course Of Treatment: Patient is a 44-year-old female who presents to the emergency department with a chief complaint of abdominal pain, especially in the left lower quadrant. Bloodwork without any significant abnormality except for AST of 58. Abdominal and Pelvic CT IMPRESSION: 1. Severe colonic diverticulosis most marked at the sigmoid segment without findings of acute diverticulitis. Progression of disease compared with the 2014 exam. 2. Negative for free air or ascites. 3. Hepatosteatosis. In the ED course the patient was given IV fluids and Toradol. Discussed the findings and test results with Dr. Munson from GI and she recommends for the patient to be discharged home with follow-up with her office. I discussed all the findings and test results with the patient. Patient was instructed to return to the emergency room immediately if any of the symptoms return worsens. Plan of care was discussed with the patient and understands and agrees. All questions were answered at patient satisfaction. There were no further complaints or concerns. Lung exam before discharge: CTA B/L. Good air exchange. No wheezing or crackles heard. CVS: S1 and S2 present. No murmurs appreciated. Patient is alert and oriented x 3. Patient is hemodynamically stable. Patient will be discharged home with follow up PCP in the next 2-3 days - Diagnoses Provider Diagnoses: Lower abdominal pain Discharge ED - Sign-Out/Discharge Documenting (check all that apply): Patient Departure - Discharge Plan Condition: Stable Disposition: HOME Patient Education Materials: Abdominal Pain (ED) Referrals: Angelique Munson MD [Medical Doctor] - Jose Cho MD [Primary Care Provider] - Additional Instructions: Please follow up with Dr. Munson within the next 1-3 days. Return to the emergency department with any new or worsening symptoms. - Billing Disposition and Condition Condition: STABLE Disposition: Home - Attestation Statements Document Initiated by Scribe: Yes Documenting Scribe: Radha Kinney Provider For Whom Robert is Documenting (Include Credential): Lucas Mcwilliams MD. Scribe Attestation: Radha Garcia scribed for Lucas Mcwilliams MD. on 04/08/19 at 1849. Scribe Documentation Reviewed: Yes Provider Attestation: The documentation as recorded by the Radha de anda accurately reflects the service I personally performed and the decisions made by Lucas langley MD. Status of Scribe Document: Viewed
[2019-04-08 08:32] LABS: ABS Basophils 0.1 10^3/ul (0-0.2); ABS Eosinophils 0.4 10^3/ul (0-0.6); ABS Lymphocytes 1.5 10^3/ul (1.0-4.8); ABS Monocytes 0.5 10^3/ul (0-0.8); ABS Neutrophils 3.3 10^3/ul (1.5-7.7); Eosinophil % 7.4 %; Hematocrit 37 % (35-47); Hemoglobin 12.8 g/dL (12.0-16.0); Lymphocyte % 25.6 %; Mean Corpuscular HGB Conc 35 g/dL (31-36); Mean Corpuscular Hemoglobin 34 pg (27-31); Mean Corpuscular Volume 98 fL (80-97); Mean Platelet Volume 8.1 fL (7.4-10.4); Nucleated Red Blood Cells % 0.1; Platelet Count 317 10^3/uL (150-450); Red Blood Count 3.78 10^6 /uL (3.70-4.87); Red Cell Distribution Width 13 % (10-15); White Blood Count 5.9 10^3/uL (3.5-10.8)
--- OUTSIDE RECORDS SUMMARY | 2019-04-08 08:33 | XMS REPORT | Summary of Care ---
:1975 Author Organization [facility] Address [address] [place] [address] Care Team Providers Name Role Phone Jose Cho MD Primary Care Provider Reason for Visit Reason Comments Anxiety Patient states she was able to control her anxiety for a long time with breathing and focusing and forward thinking but lately with menopause it does not help. Encounter Details Date Type Department Care Team Description 03/05/2019 Office Visit [place] [facility] Jose Cho, Cheryl-menopausal (Primary Dx); Medicine MD Moderate episode of recurrent major depressive disorder (HCC); [address] [facility] Panic attacks; [place] [address] [place] [address] Insomnia due to other mental disorder [phone] Allergies No Known Allergiesdocumented as of this encounter (statuses as of 03/05/2019) Medications Medication Sig Dispensed Refills Start Date End Date Status FIBER, CORN DEXTRIN, Take 1 Tab by 0 Discontinued PO mouth EVERY 9 MORNING. dicyclomine (BENTYL) Take 1 Tab by 30 Tab 3 10/05/2017 Discontinued 20 MG Oral mouth FOUR 9 TabIndications: TIMES DAILY. Irritable bowel syndrome with both constipation and diarrhea, Colon spasm trazodone (DESYREL) Take 1-3 Tabs 90 Tab 0 11/29/2017 Discontinued 50 MG Oral Tab by mouth 9 EVERY BEDTIME NEEDED (sleep). cyclobenzaprine Take 1 Tab by 10 Tab 0 03/04/2018 Discontinued (FLEXERIL) 10 MG Oral mouth EVERY 9 Tab BEDTIME NEEDED (hip pain). Probiotic Product Take by 0 Discontinued (TRUBIOTICS PO) mouth. 9 fluticasone (FLONASE) [place] 2 120 Bottle 2 09/10/2018 Discontinued 50 MCG/ACT Nasal Sprays in 9 SuspensionIndications nose TWICE : Non-seasonal DAILY. allergic rhinitis due to other allergic trigger estradiol (ESTRACE) 1 Take 1 mg by 90 Tab 3 09/10/2018 Discontinued MG Oral Tab mouth DAILY. 9 fluconazole Take 1 Tab by 2 Tab 0 09/12/2018 Discontinued (DIFLUCAN) 150 MG mouth DAILY. 9 Oral Tab documented as of this encounter (statuses as of 03/05/2019) Active Problems Problem Noted Date History of colonic diverticulitis 03/28/2018 Moderate episode of recurrent major depressive disorder 07/02/2017 Overview: paroxitene and alprazolam, [facility] admission for suicidal ideation 2015 Counseling GP Zurenda 2014- No medication since 2016 Treatment cross-fit exercise 2015- Panic attacks 07/02/2017 Non-cardiac chest pain 07/02/2017 Overview: [facility] admission 06/2017 trop borderline elevated ECG tele and nuclear stress test negative IBS (irritable bowel syndrome) 12/11/2013 GERD (gastroesophageal reflux disease) 12/11/2013 Lactose intolerance 12/11/2013 documented as of this encounter (statuses as of 03/05/2019) Resolved Problems Problem Noted Date Resolved Date Diverticulosis 05/14/2014 07/02/2017 Nonspecific (abnormal) findings on radiological and other 08/12/20072013 examination of genitourinary organs Other and unspecified ovarian cyst 08/12/2007 12/11/2013 Other specified disorder of breast 04/02/2007 12/11/2013 Excessive or frequent menstruation 09/17/2006 12/11/2013 Metrorrhagia 09/17/2006 03/05/2019 Abdominal pain, epigastric 07/14/2004 12/11/2013 Other specified pre-operative examination 03/25/2004 04/20/2011 Sterilization 03/25/2004 12/11/2013 Sterilization 03/03/2004 04/20/2011 Disturbance of skin sensation 02/08/2004 12/11/2013 documented as of this encounter (statuses as of 03/05/2019) Social History Tobacco Use Types Packs/Day Years Used Date Former Smoker Cigarettes 0.1 20 Smokeless Tobacco: Never Used Alcohol Use Drinks/Week oz/Week Comments Yes 2 Standard drinks or equivalent 1.7 beer Sex Assigned at Date Recorded Not on file Job Start Date Occupation Industry Not on file Not on file Not on file Travel History Travel Start Travel End No recent travel history available. documented as of this encounter Last Filed Vital Signs Vital Sign Reading Time Taken Comments Blood Pressure 110/70 03/05/2019 3:04 PM EDT Pulse 64 03/05/2019 3:04 PM EDT Temperature - - Respiratory Rate - - Oxygen Saturation - - Inhaled Oxygen Concentration - - Weight 85.3 kg (188 lb) 03/05/2019 3:04 PM EDT Height 160 cm (5' 3") 03/05/2019 3:04 PM EDT Body Mass Index 33.3 03/05/2019 3:04 PM EDT documented in this encounter Patient Instructions Patient InstructionsJose Cho MD - 03/05/2019 3:00 PM EDTContinue exercise Melatonin is a naturally occuring hormone that may help your sleep. It is sold over the counter. Please try 4-8 mg 1-2 hours before bedtime. Another option for sleep is trazodone this is prescription let me know if you need it Another option is daily medication escitalopram or sertraline documented in this encounter Progress Notes Jose Cho MD - 03/05/2019 3:00 PM EDT PATIENT: Shandra Barbour : 1975 DATE OF SERVICE: 03/05/2019 CHIEF COMPLAINT: Chief Complaint Patient presents with Anxiety Patient states she was able to control her anxiety for a long time with breathing and focusing andforward thinking but lately with menopause it does not help. Subjective HISTORY OF PRESENT ILLNESS: Shandra Barbour is a 44-y.o. female. 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 MD She denies alcohol abuse no drug abuse She denies suicidal ideation She has long history panic and depression and had been on paroxitene and escitalopram in the past plus alprazolam She is seeing on line therapist now She is doing daily cross fit one month and feels better Patient Active Problem List Diagnosis IBS (irritable bowel syndrome) GERD (gastroesophageal reflux disease) Lactose intolerance Moderate episode of recurrent major depressive disorder (HCC) Panic attacks Non-cardiac chest pain History of colonic diverticulitis Family History Problem Relation Age of Onset Asthma Mother Diabetes Maternal Grandfather Medications none No Known Allergies Social History Socioeconomic History Marital status: Spouse name: Not on file Number of children: Not on file Years of education: Not on file Highest education level: Not on file Occupational History Not on file Social Needs Financial resource strain: Not on file Food insecurity: Worry: Not on file Inability: Not on file Transportation needs: Medical: Not on file Non-medical: Not on file Tobacco Use Smoking status: Former Smoker Packs/day: 0.10 Years: 20.00 Pack years: 2.00 Types: Cigarettes Smokeless tobacco: Never Used Substance and Sexual Activity Alcohol use: Yes Alcohol/week: 1.7 standard drinks Types: 2 Standard drinks or equivalent per week Comment: beer Drug use: No Sexual activity: Yes Partners: Male control/protection: Other, Surgical Lifestyle Physical activity: Days per week: Not on file Minutes per session: Not on file Stress: Not on file Relationships Social connections: Talks on phone: Not on file Gets together: Not on file Attends confucianism service: Not on file Active member of club or organization: Not on file Attends meetings of clubs or organizations: Not on file Relationship status: Not on file Intimate partner violence: Fear of current or ex partner: Not on file Emotionally abused: Not on file Physically abused: Not on file Forced sexual activity: Not on file Other Topics Concern Back Care Not Asked Bike Helmet Not Asked Blood Transfusions Not Asked Caffeine Concern No Exercise Yes Comment: had swam at lunch 5 days per week at [employer] until spring 2013 Hobby Hazards Not Asked International Travel No Service No Occupational Exposure Not Asked Seat Belt Not Asked Self-Exams Not Asked Sleep Concern Yes Comment: occasional insomnia Special Diet No Stress Concern No Weight Concern Yes Comment: heaviest she has ever been november 2013 goal wt 150 lbs Social History Narrative Works at [employer] Lives in [facility] 15 year old son senior in high school Over the last 2 weeks, have you been feeling down, depressed, anxious, or hopeless?: 3 Over the past 2 weeks, have you felt little interest or pleasure in doing things ?: 0 Trouble falling or staying asleep, or sleeping too much?: 3 Feeling tired or having little energy?: 3 Poor appetite or overeating?: 0 Feeling bad about yourself or that you are a failure or have let yourself or your family down?: 0 Trouble concentrating on things, such as reading the newspaper or watching TV?: 3 Moving or speaking so slowly that other people notice OR being fidgety and restless?: 0 Thoughts that you would be better off or of hurting yourself in some way?: 0 PHQ-9 TOTAL SCORE: 12 In the past 2 years, have you felt depressed or sad most days, even if you felt ok?: Yes ROS no gastro-intestinal or cardiovascular symptoms Objective PHYSICAL EXAM: VITALS: BP 110/70 | Pulse 64 | Ht 5' 3" (1.6 m) | Wt 188 lb (85.3 kg) | LMP 01/12/2015 (Exact Date) | BMI 33.30 kg/m Body mass index is 33.3 kg/m . Physical Exam Mental status exam; she is alert, orient to time, person and place. Normal thought content, speech, affect, mood and dress are noted. PHQ-9 score is: 11 LISA 7 Score (generalized anxiety disorder) is: 06/14 I spent 25 minutes with the patient, greater than half of this in direct face to face counseling addressing the current condition and the plan of care. ASSESSMENT / IMPRESSION: ICD-9-CM ICD-10-CM 1. Cheryl-menopausal 627.2 N95.1 2. Moderate episode of recurrent major depressive disorder (HCC) Shared decision making was performed with the patient. After careful discussion of risks and benefits, the patient and I have agreed to no selective serotonin receptor inhibitor or benzos and continue therapy . 296.32 F33.1 3. Panic attacks continue online therapist 300.01 F41.0 4. Insomnia due to other mental disorder trial over the counter melatonin 300.9 F51.05 327.02 F99 Patient Instructions Continue exercise Melatonin is a naturally occuring hormone that may help your sleep. It is sold over the counter. Please try 4-8 mg 1-2 hours before bedtime. Another option for sleep is trazodone this is prescription let me know if you need it Another option is daily medication escitalopram or sertraline Jose Cho MD 03/05/2019 15:33 documented in this encounter Plan of Treatment Health Maintenance Due Date Last Done Comments HIV SCREENING 02/18/1988 LIPID DISORDER SCREENING 1991 INFLUENZA VACCINE (#1) 2019 PAP SMEAR 03/02/2019 03/02/2016, 03/02/2016, 05/14/2014, Additional history exists DIABETES SCREENING 03/27/2019 03/27/2018, 03/02/2016, 01/20/2015, Additional history exists MAMMOGRAM (SCREENING) 03/27/2019 03/27/2018, 03/05/2017, 03/02/2016, Additional history exists DEPRESSION SCREENING 03/05/2020 03/05/2019, 03/05/2019 HPV IMMUNIZATION SERIES Aged Out No longer eligible based on patient's age to complete this topic MENINGOCOCCAL VACCINE IMM Aged Out No longer eligible based on patient's age to complete this topic PNEUMOCOCCAL 0-64 YRS Aged Out No longer eligible based on patient's age to complete this topic documented as of this encounter Goals Goal Patient Goal Associated Recent Patient-Stated? Author Type Problems Progress Depression Depression 12 No Marquis screen (PHQ-9) (03/05/2019 Jose Muñoz, total score < 5 3:05 PM EDT) Note: This is an individualized treatment (depression) goal for Shandra Barbour: Displayed above is your goal for a depression screening (PHQ-9) score that would indicate good control of your depression. Keep a regular sleep schedule Lifestyle Jose Campbell MD Note: This is an individualized lifestyle goal for Shandra Barbour: Please maintain a regular sleep schedule. This may help with some symptoms of depression. Take all prescribed medications as Self-management Jose Campbell MD directed Note: This is an individualized self-management goal for Shandra Barbour: Please take all prescribed medications as directed. 1. Do not skip doses. If you cannot afford your medications, talk with your doctor. 2. Use a pill reminder system such as a pill box if needed. Your pharmacist can help you with this. 3. Contact your Pharmacy 5 days before your medication runs out. If you cannot take your medications for any reasons, talk with your doctor. 4. Please bring all of your medication bottles and inhalers (or a list of all your medications/inhalers) with you to every visit. Potential barriers to meeting all of your care plan goals will continue to be addressed on an ongoing basis. documented as of this encounter Results Not on filedocumented in this encounter Visit Diagnoses Diagnosis Cheryl-menopausal - Primary Symptomatic menopausal or female climacteric states Moderate episode of recurrent major depressive disorder (HCC) Panic attacks Panic disorder without agoraphobia Insomnia due to other mental disorder documented in this encounter Guarantor Name Account Type Relation to Date of Phone Billing Patient Address Shandra Barbour Personal/Family 1975 [phone] [address] [facility] [address] (Home) [address] [phone] [place] [id number] documented as of this encounter
[2019-04-08 08:50] LABS: ALT 58 U/L (7-52); AST 36 U/L (13-39); Albumin/Globulin Ratio 1.4 (1-3); Alkaline Phosphatase 103 U/L (34-104); Amylase 37 U/L (29-103); Anion Gap 5 mmol/L (2-11); BUN/Creatinine Ratio 18.2 (8-20); Blood Urea Nitrogen 16 mg/dL (6-24); C Reactive Protein 4.19 mg/L (<8.01); CO2 Carbon Dioxide 26 mmol/L (22-32); Chloride 105 mmol/L (101-111); EGFR African American 83.7 (>60); EGFR Non-African American 69.2 (>60); Globulin 2.9 g/dL (2-4); Glucose 94 mg/dL (70-100); Potassium 4.1 mmol/L (3.5-5.0); Sodium 136 mmol/L (135-145); Total Protein 6.9 g/dL (6.4-8.9)
[2019-04-08 08:55] LABS: HCG Pregnancy < 0.60 mIU/mL
[2019-04-08] MEDS ORDERED: Iohexol 300* (CONTRAST) 10 ML SDV IV ONE (09:13)
[2019-04-08] MEDS ORDERED: Ketorolac INJ* 30 MG/ML 1 ML VIAL IV PUSH ONE (12:02)
[2019-04-08 12:31] LABS: Urine Appearance Clear; Urine Bilirubin Negative (Negative); Urine Blood Negative (Negative); Urine Color Straw; Urine Glucose Negative (Negative); Urine Ketones Negative (Negative); Urine Nitrite Negative (Negative); Urine Protein Negative (Negative); Urine Specific Gravity 1.006 (1.010-1.030); Urine Urobilinogen Negative (Negative)
[2019-04-08 12:47] VITALS: BP 106/74
== END 2019-04-08 12:45 | disposition home or self-care (01) ==
LOC: ED 07:48
DX: K57.30 Diverticulosis of large intestine without perforation or abscess without bleeding (principal); K76.0 Fatty (change of) liver, not elsewhere classified; R10.32 Left lower quadrant pain; Z90.710 Acquired absence of both cervix and uterus; Z87.891 Personal history of nicotine dependence
CPT/HCPCS: 36415; 74177; 80053; 81003; 82150; 83605; 83690; 84702; 85025; 86140; 96374; 99283; J1885; Q9967